=== PATIENT | male | born 1950 | race Caucasian/White ===

== ENCOUNTER 2025-03-01 17:49 | Emergency (ER) | payer MEDICARE, SELFPAY ==
--- OUTSIDE RECORDS SUMMARY | 2005-10-23 08:00 | XMS_ITS | Continuity of Care Document ---
Author Organization [facility] Address [address] [address] [place] [address] Phone Care Team Providers Care Cath Lab Manager Name Role Phone Unavailable Unavailable Unavailable Allergies, Adverse Reactions, Alerts Substance Reaction Status Criticality No Known allergies Medications Medication Instructions Dosage Effective Dates (start - stop) Status Comments glucosamine sulfate 500 mg Cap Take 1 tablet by mouth daily - Active allopurinol 300 mg Tab Take one tablet by mouth daily - Active Prilosec 20 mg Cap Take one capsule by mouth twice per day - Active ranitidine 75 mg Tab Take one tablet by mouth two times per day - Active Aspirin Low Dose 81 mg Tab, Delayed Release Take 1 tablet by mouth daily - Active MULTI-VITAMINS TABLET Take 1 tablet by m outh daily - Active Procedures Procedure Date Ugi Endo; W/bx 1/mx Advance Directives Directive Yes / No Effective Date File Name No Information Encounters Encounter Description Practice Location Reason(s) For Visit Diagnoses Date Provider Providers Copied on Encounter [facility], [address] [address], [place], [place], [id number], [place] tel:[phone] [facility] No Information Family History Family Member Type Diagnosis Age At Onset No Information Payers Payer name Insurance type Covered republican ID Authoriza tion(s) No Information Social History Type Description Quantity Date Captured Comments Sex Male Smoking Status No Information Chief Complaint And Reason For Visit No Information Reason For Referral Reason For Referral No Information History Of Present Illness Encounter Date Complaint History Of Prese nt Illness No Information Functional Status Date Functional Assessmen t No Information Instructions Date Instruction Additional Infor mation No Information Assessments Type Assessment Date No Information Patient Care Teams Name Effective Dates (start - stop) Status Members No Information
--- OUTSIDE RECORDS SUMMARY | 2005-10-23 08:00 | XMS_ITS | Continuity of Care Document ---
Author Organization [facility] Address [address] [address] [place] [address] Phone Care Team Providers Care Small Lot Operator Name Role Phone Unavailable Unavailable Unavailable Allergies, [...] Diagnoses Date Provider Providers Copied on Encounter [facility], [address] [address], [place], [place], [id number], [place] tel:[phone] [facility] No Information Family History Family Member Type Diagnosis Age At Onset No Information Payers Payer name Insurance type Covered alliance party ID Authoriza tion(s) No Information Social History [...]
--- OUTSIDE RECORDS SUMMARY | 2008-01-19 18:00 | XMS_ITS | Continuity of Care Document ---
Author Organization [facility] Address [address] [place] [address] Phone Care Team Providers Care Administrative Supervisor Name Role Phone Rigo DIAZ MD, Klever Unavailable Unavailable Advance Directives Directive Yes / No Effective Date File Name No Information Encounters Encounter Description Practice Location Reason(s) For Visit Diagnoses Date Provider Providers Copied on Encounter [facility], [address], [place], [place], [id number], [place] tel:[phone] No Information 8 Rigo Ernst. [address], [place], [place], [facility], [place]. tel:[phone] Referring Provider: Klever Olmstead, [address] [place], [place], [facility]. tel:[phone] Family History Family Member Type Diagnosis Age At Onset No Information Payers Payer name Insurance type Covered green party ID Authoriza tiyosef(s) Blue Plus BL [id number] Social History Type Description Quantity Date Captured [...]
--- OUTSIDE RECORDS SUMMARY | 2008-01-19 18:00 | XMS_ITS | Continuity of Care Document ---
Author Organization [facility] Address [address] [place] [address] Phone Care Team Providers Care Lower School Spanish Teacher Name Role Phone Rigo DIAZ MD, Klever Unavailable Unavailable Advance Directives Directive Yes / No Effective Date File Name No Information Encounters Encounter Description Practice Location Reason(s) For Visit Diagnoses Date Provider Providers Copied on Encounter [facility], [address], [place], [place], [id number], [place] tel:[phone] No Information 8 Rigo Ernst. [address], [place], [place], [facility], [place]. tel:[phone] Referring Provider: Klever Olmstead, [address] [place], [place], [facility]. tel:[phone] Family History Family Member Type Diagnosis Age At Onset No Information Payers Payer name Insurance type Covered democrat ID Authoriza tiyosef(s) Blue Plus BL [id number] Social History Type Description Quantity Date Captured [...]
--- OUTSIDE RECORDS SUMMARY | 2025-03-01 17:52 | XMS_ITS | Encounter Summary ---
Author Organization [facility] Address [address] [place] [address] Care Team Providers Care Associate Program Manager Name Role Phone Love Sandra APRN, C.N.P., M.S.N. Primary Care Provider Encounter Details Date Type Department Care Team ([facility] st Contact Info) Description 01/17/2025 Orders Only Department of Family Medicine, [facility], in [place] [address] [place] [phone] Love Sandra APRN, C.N.P., M.S.N. [address] [place] [phone] Social History Tobacco Use Types Packs/Day Years Used Date Smoking Tobacco: Former Cigarettes 0.8 19 1 969 - 1987 Smokeless Tobacco: Never Alcohol Use Standard Drinks/Week Comments Not Currently 0 (1 standard drink = 0.6 oz pur e alcohol) Hunger Vital Sign Answer Date Recorded Within the past 12 months, y ou worried that your food would run out before you got the money to buy more. Never true 01/04/20 25 Within the past 12 months, t he food you bought just didn't last and you didn't have money to get more. Never true 01/03/2025 PRAPARE - Transportation Answer Date Re corded In the past 12 months, has l ack of transportation kept you from medical appointments or from getting medications? No 12/19 In the past 12 months, has l ack of transportation kept you from meetings, work, or from getting things needed for daily living? No 01/03/2025 [facility] Utilities Answer Date Recorded In the past 12 months has [facility] electric, gas, oil, or water company threatened to shut off services in your home? No 01/03/2025 Depression Answer Date Recor ded PHQ-9 Total Score (max 27) 2 01/24 Housing Stability Answer Date Recorded What is your living situation today? I have a [facility] place to live 01/03/2025 Sex and Gender Information Value Date Recorded Sex Assigned at Male 01/14/2021 1:53 PM CDT Legal Sex Male 4:35 PM CDT Gender Identity Not on file Sexual Orientation Not on file documented as of this encounter Plan of Treatment Upcoming Encounters Date Type Department Care Team (Late st Contact Info) Description 05/30/2025 9:10 AM BUSINESS LIBRARIAN Appointment Department of Laboratory Medicine in [address] [phone] Love Sandra APRN, C.N.P., M.S.N. [address] [place] [phone] 05/30/2025 9:20 AM BUSINESS LIBRARIAN Appointment Department of Laboratory Medicine in [address] [place] [address] Love Sandra APRN, C.N.P., M.S.N. [address] [place] [phone] 05/31/2025 3:00 PM BUSINESS LIBRARIAN Office Visit Department of Family Medicine, [facility], in [address] [place] [address] Love Sandra APRN, C.N.P., M.S.N. [address] [place] [phone] documented as of this encounter Visit Diagnoses Not on filedocumented in this encounter Additional Health Concerns Assessment Noted Time PHQ-9 Depression Total Score: 2 01/25/20 22 8:34 AM CDT documented as of this encounter Care Teams Associate Program Manager Relationship Specialty Start Date End Date Love Sandra APRN, C.N.P., M.S.N. [address] [place] [phone] PCP - General Family Medicine 07/28/23 documented as of this encounter
--- OUTSIDE RECORDS SUMMARY | 2025-03-01 17:52 | XMS_ITS | Clinical Summary ---
Author Organization [facility] Address [address] [place] [address] Care Team Providers Care Territory Manager General Sales Name Role Phone Love Sandra APRN C.N.P., M.S.N. Primary Care Provider Source Comments Patient records contain information from all sites at [facility]. For routine questions regarding patient records, call [phone] during business hours, M-F 8:00 AM - 5:00 PM Central Time. Record requests for emergency care only can be directed to [phone] at any time.[facility] Allergies Active Allergy Reactions Criticality Noted Date Comments Hydrocodone-Acetaminophen Anxiety,Other (see comments) 07/02/2010 Oxycodone Anxiety,Other (see comments) 07/02/2010 Medications pravastatin (PRAVACHOL) 40 mg tablet TAKE ONE TABLET BY MOUTH AT BEDTIME FOR CHOLESTEROL 0 Active metFORMIN (GLUCOPHAGE) 1,000 mg tablet TAKE ONE TABLET BY MOUTH TWO TIMES A DAY FOR DIABETES 0 Active allopurinoL (ZYLOPRIM) 300 mg tablet TAKE ONE TABLET BY MOUTH EVERY DAY 0 Active timolol (TIMOPTIC) 0.5 % ophthalmic solution INSTILL 1 DROP INTO EACH EYE TWICE DAILY 1 Active CLONAZEPAM ORAL Take by mouth. PRN for anxiety Active ketoconazole (NIZORAL) 2 % shampoo Shampoo daily, leave on for 5-10 minutes, then rinse. 120 mL [address] aspirin [address] tablet TAKE ONE TABLET BY MOUTH EVERY DAY 1 Active hydrocortisone (HYTONE) 2.5 % cream APPLY TO AFFECTED AREA(S) ON FOREHEAD ONCE TO TWICE DAILY WHEN DRY AND ITCHY 1 Active acetaminophen (TYLENOL) 500 mg tablet Take 1 tablet (500 mg total) by mouth every 6 (six) hours. Alternate with tramadol every 3 hours scheduled 120 tablet 1 Active citalopram (CeleXA) 20 mg tablet Take 1 tablet by mouth daily. 2 Active meclizine (ANTIVERT) 25 mg chewable tablet Chew 25 mg 3 (three) times a day as needed for dizziness. Active chlorthalidone (Hygroton) 25 mg tablet Take 25 mg by mouth daily. Active lisinopriL 20 mg tablet Take 1 tablet (20 mg total) by mouth daily. 90 tablet 3 5 08/20/19 26 Active betamethasone dipropionate 0.05 % ointment Apply topically. 5 Active semaglutide (Ozempic) 2 mg/dose (8 mg/3 mL) injection Inject under the skin. 5 Active empagliflozin (Jardiance) 25 mg tablet Take 25 mg by mouth daily. for diabetes 5 Active miconazole 2 % powder Apply to arm pits 2 times daily for 2/3 weeks. Stop nystatin. 71 g 1 5 Active Active Problems Problem Noted Date Diagnosed Date Fatty Liver 11/28/2024 Assessment & Plan (11/28/2024 9:59 AM CDT): - Patient continues to work on weight loss, and is doing well with this. General Health Maintenance Significant weight loss positively impacting health. Regular eye exams with no diabetic eye disease. - Continue regular eye exams twice a year. - Maintain current weight management strategies. Follow-up Good control of diabetes and blood pressure. Suggested follow-up in six months. - Schedule follow-up appointment in six months. Dizziness 08/26/2023 Diabetes Mellitus Type 2 With Diabetic Neuropath y 07/15/2023 Assessment & Plan (11/28/2024 9:59 AM CDT): Type 2 Diabetes Mellitus A1c improved to 7.2, indicating good control. Emphasized taking metformin with food to enhance efficacy and reduce side effects. - Continue metformin 1000 mg twice a day. - Instruct to take metformin with food. Peripheral Neuropathy Numbness and tingling in toes, possibly due to diabetes or past knee surgery. Declined diabetic shoes at this time. - Consider diabetic shoes if foot ulcers develop. Orders: Hemoglobin A1c; Future Albumin, Random, Urine; Future Assessment & Plan (08/19/2024 10:02 AM CDT): -- A1C up to 7.9 due to dietary discretion, no medication changes made. Continue Ozempic 1 mg weekly And metformin. Type 2 diabetes mellitus with hyperglycemia A1c increased from 6.7% to 7.9% due to increased sugar intake. - Advise reducing sugar intake and adopting a healthy diet. -Peripheral neuropathy, DM Decreased sensation in feet likely related to diabetes. - Advise monitoring feet for injuries or changes using a mirror. - F/up in 3 months Orders: Hemoglobin A1c; Future Diabetes Mellitus Type 2 Wit h Diabetic Chronic Kidney Disease 07/09/2023 Assessment & Plan (11/28/2024 9:59 AM CDT): Type 2 Diabetes Mellitus A1c improved to 7.2, indicating good control. Emphasized taking metformin with food to enhance efficacy and reduce side effects. - Continue metformin 1000 mg twice a day. - Instruct to take metformin with food. Peripheral Neuropathy Numbness and tingling in toes, possibly due to diabetes or past knee surgery. Declined diabetic shoes at this time. - Consider diabetic shoes if foot ulcers develop. Orders: Hemoglobin A1c; Future Albumin, Random, Urine; Future Smoking Tobacco Use Personal History 01/01/2021 Dermatitis Seborrheic 12/26/2020 Claustrophobia 09/30/2020 Primary Open-Angle Glaucoma Indeterminate Stage Right 09/21/2020 Gastroesophageal Reflux Disease NOS 09/21/2020 Assessment & Plan (11/28/2024 9:59 AM CDT): - Doing well, no longer on omeprazole Obesity Body Mass Index 30-39.9 Adult 08/27/2020 Assessment & Plan (11/28/2024 9:59 AM CDT): -Body mass index is 33.11 kg/m . He is doing well with continued weight loss Assessment & Plan (08/19/2024 10:02 AM CDT): --Body mass index is 33.4 kg/m . Continue with weight loss efforts and patient is doing wonderful with this Arthroplasty Total Knee Replacement Status Post Left 08/06/2020 Depression Major Recurrent Full Remission 2015 Assessment & Plan (11/28/2024 9:59 AM CDT): - Mood is stable on citalopram, and prn chilo managed by the [facility] Assessment & Plan (08/19/2024 9:31 AM CDT): -- Stable on citalopram. Continue. Gout 09/27/2015 Assessment & Plan (11/28/2024 9:59 AM CDT): - no recent gouty flares, continue allopurinol 300mg daily; Uric Acid (3.8) August 2024 Assessment & Plan (08/19/2024 9:31 AM CDT): -- uric acid levels within normal limits, continue current dosing of allopurinol Hypertensive Chronic Kidney Disease With Stage 1 Through Stage 4 Chronic Kidney Disease, Or Unspecified Chronic Kidney Disease 03/07/2015 Assessment & Plan (11/28/2024 9:59 AM CDT): Hypertension Blood pressure well-controlled. Continue lisinopril and chlorthalidone, no dizziness reported. Assessment & Plan (08/19/2024 10:02 AM CDT): -- BP normotensive, and patient is orthostatic. Recommend optimal fluid hydration. -- Reduce lisinopril from 30-20mg -- Continue chlorthalidone - Monitor BP at home, recommend fluid hydration Apnea Sleep Obstructive 03/13/2010 Assessment & Plan (11/28/2024 9:59 AM CDT): - stable and compliant with CPAP, follows [facility] the [facility] Hyperlipidemia 02/17/2010 Overview (09/21/2020): 5.5% 10 yr risk 2013 69% lifetime risk Assessment & Plan (11/28/2024 9:59 AM CDT): - Lipid panel up to date in August, continue pravastatin Resolved Problems Problem Noted Date Diagnosed Date Resolved Date Diabetes Mellitus Type 2 Wit h Diabetic Neuropathy 02/12/2024 02/12/2024 Body Mass Index 40.0 To 44.9 Adult 01/01/2021 02/20/2021 Dyspnea 01/01/2021 01/14/2023 Care Home Use Of Insulin Active 12/17/2020 02/12/2024 Tear Rotator Cuff Initial Left 11/12/2020 12/26/2020 Overview (11/12/2020): Added automatically from request for surgery [id number] Pain Shoulder Left 09/30/2020 Alzheimer's Disease 09/30/2020 10/24/19 21 Anxiety 09/21/2020 09/21/2020 Anxiety 09/21/2020 02/20/2021 Osteoarthritis 09/21/2020 12/26/2020 Hypertension Essential Primary 09/11/2020 09/21/2020 Diabetes Mellitus Type 2 Without Complication 08/16/19 21 07/15/2023 Arthroplasty Total Hip Repla cement Status Post Left 08/06/2020 12/26/2020 Arthroplasty Total Knee Repl acement Status Post Right 08/06/2020 12/26/2020 Sleep Apnea Unspecified 08/06/202012/19 Emphysema Panlobular 10/17/2015 021 Obesity Body Mass Index 30-39.9 Adult 10/03/2014 11/28/2024 Encounters Date Type Department Care Team Description 03/01/2025 Nurse Triage Department of Family Medicine, [facility], [place] [address] [place] [address] Radha Birmingham R.N. Head Injury 02/28/2025 Clinical Communication Department of Family Medicine, [facility], in [address] [place] [address] Love Sandra APRN, C.NGuevara, M.S.N. Order Request (PT for Vertigo) 01/17/2025 Orders Only Department of Family Medicine, [facility], [place] [address] [place] [address] Love Sandra APRN, C.N.Nuvia., M.S.N. 01/17/2025 Orders Only Department of Family Medicine, [facility], in [address] [place] [address] Love Sandra APRN, C.N.Nuvia., M.S.N. 01/17/2025 Clinical Communication Department of Family [facility], [facility], in [address] [place] [address] Love Sandra APRN, C.N.Nuvia., M.S.N. 01/06/2025 Clinical Communication Department of Family [facility], [facility], in [address] [place] [phone] Love Sandra APRN, C.N.Nuvia., M.S.N. Communication (Medication/Symptom Update) 01/03/2025 2:45 PM CDT Office Visit Department of Family Medicine, [facility], in [address] [place] [address] Love Sandra APRN, C.N.P., M.S.N. Sabrina Rain R.N. Annual Medicare Examination Return (Primary Dx) Discharge Disposition: Home or Self Care 01/03/2025 2:20 PM CDT Office Visit Department of Family Medicine, [facility], [place] [address] [place] [address] Love Sandra APRN, C.N.P., M.S.N. Intertrigo (Primary Dx) Discharge Disposition: Home or Self Care 01/03/2025 Orders Only Department of Family [facility], [facility], [address] [phone] Love Sandra APRN, C.N.P., M.S.N. Tinea Corporis 12/22/2024 11:20 AM CDT Office Visit Department of Family Medicine, [facility], [place] [address] [place] [address] Elier Sepulveda M.D. Tinea Corporis (Primary Dx) Discharge Disposition: Home or Self Care 12/22/2024 Orders Only [facility] Love Sandra APRN, C.N.P., M.S.N. from Last 3 Months Immunizations Immunization Administration Dates Next Due HZV (ZOSTAVAX) 09/27/2015,11/13/2014 HepB Adult 08/26/2023(Deferred: Patient Ref used) Influenza TIV (IM) 02/06/2016, 6,01/29/2012,2010,01/04/2009 Influenza, Seasonal, Injectable 01/04/2009 Influenza, Unspecified 03/30/2020,2013,04/20/2012,2009 PCV13 09/27/2015 PPSV23 09/24/2016,04/03/2009 Pneumococcal, Unspecified 07/29/2023(Deferred: P atient decision) RZV (SHINGRIX) 06/13/2021, 1,12/26/2020(Deferr ed: Parental decision) SARS-COV-2 (COVID-19) - MODERNA(Discontinued) 07/01/2020,06/03/2020 Tdap 06/13/2021, 1,07/02/2010,2008 Zoster, Unspecified 12/26/2020(Deferred: Other),08/15/2020(Deferred: Other) influenza trivalent high dos e (HD)(PF) 02/06/2017,02/06/2016 influenza trivalent vaccine (6 months and older)(PF) 01/06/2019,02/17/2018,04/12/2015 influenza vaccine quad (FLUZONE/FLUARIX) (6 months and older)(PF) 08/26/2023(Deferred: Patient Refused),03/30/2020,02/01/2014,02/17/20 13 Family History Medical History Relation Name Comments Heart disease Brother No Known Problems Daughter 1 No Known Problems Daughter 2 Old age Father Cancer Mother Heart disease Sister 1 Hernia Sister 2 No Known Problems Son Relation Name Status Comments Brother Alive Daughter 1 Alive Daughter 2 Alive Father Mother Sister 1 Alive Sister 2 Alive Son Alive Social History Tobacco Use Types Packs/Day Years Used Date Smoking Tobacco: Former Cigarettes 0.8 19 1 969 - 1987 Smokeless Tobacco: Never Tobacco Cessation:Counseling Given: Yes Alcohol Use Standard Drinks/Week Comments Not Currently [...] things needed for daily living? No 01/03/2025 [facility] Utilities Answer Date Recorded In the past 12 months has e [employer], gas, oil, or water [employer] threatened to shut off services in your home? No 01/03/2025 Depression Answer Date Recor ded PHQ-9 Total Score (max 27) 2 01/24 Housing Stability Answer Date Recorded What is your living situation today? I have a [facility] place to live 01/03/2025 Sex and Gender Information Value Date Recorded Sex Assigned at Male 01/14/2021 1:53 PM CDT Legal Sex Male 4:35 PM CDT Gender Identity Not on file Sexual Orientation Not on file Last Filed Vital Signs Vital Sign Reading Time Taken Comments Blood Pressure 137/77 01/03/2025 1:56 PM CDT Pulse 63 01/03/2025 1:56 PM CDT Temperature 36.6 C (97.8 F) 01/03/2025 1:56 PM CDT Respiratory Rate 18 12/22/2024 10:59 AM CDT Oxygen Saturation 95% 08/19/2024 7:56 AM CDT Inhaled Oxygen Concentration - - Weight 114 kg (250 lb 10.6 oz) 01/03/2025 1:56 P M CDT Height 185.4 cm (6' 0.99) 01/03/2025 1:56 PM CD T Body Mass Index 33.08 01/03/2025 1:56 PM CDT Plan of Treatment Upcoming Encounters Date Type Department Care Team (Late st Contact Info) Description 05/30/2025 9:10 AM BODY SHOP WORKER Appointment Department of Laboratory Medicine in [address] [place] [address] Love Sandra APRN, C.N.P., M.S.N. [address] [place] [address], [place] [phone] 05/30/2025 9:20 AM BODY SHOP WORKER Appointment Department of Laboratory Medicine in [address] [place] [address] Love Sandra APRN, C.N.P., M.S.N. [address] [place] [address], [place] [phone] 05/31/2025 3:00 PM BODY SHOP WORKER Office Visit Department of Family Medicine, [facility], in [address] [place] [phone] Love Sandra APRN, C.N.P., M.S.N. [address] [place] [phone] Health Maintenance Due Date Last Done Comments CT Colonography 1950 FIT 1950 Hepatitis C Screening 1950 RSV vaccine - (32-36 weeks) or 50+ years (1 - Risk 50-74 years 1-dose series) 2000 Hepatitis B Vaccines (1 of 3 - Risk 3-dose series) 2010 Urine Albumin 07/13/2024 07/14/2023, 07/01/2021 COVID-19 Vaccine ( season) 2024 02/20/2021, 07/01/2020, 06/03/2020 Influenza Vaccine (#1) 2024 , 03/30/2020, 01/06/2019, Additional history exists Hemoglobin A1C 05/28/2025 11/25/2024, 05/0 04/2024, 02/01/2024, Additional history exists Creatinine Level (Kidney Function Test) 08/18/2025 08/18/2024, 07/14/2023, 09/30/2021, Additional history exists Potassium Level 08/18/2025 08/18/2024, 06/19, 09/30/2021, Additional history exists Sodium Level 08/18/2025 08/18/2024, 2 09/2023, 09/30/2021, Additional history exists Diabetic Office Visit with Foot Exam 08/19/2025 08/19/2024, 07/15/2023, 01/24/2022, Additional history exists Visit: Chronic Disease, age 18+ 11/28/2025 11/28/2024, 11/28/2024 Office Visit for Blood Pressure Check / Re-check 01/03/2026 01/03/2025 Visit: Medicare Annual Wellness 01/04/2026 01/03/2025 Diabetic Eye Exam 01/09/2026 01/09/2025 (Pe rformed elsewhere), 11/28/2024 (Performed elsewhere), 01/04/2024 (Performed elsewhere), Additional history exists Cologuard 09/06/2026 09/07/2023 Lipid (Cholesterol) Screening 08/18/2029 08/18/2024, 07/14/2023, 03/27/2021 Colonoscopy 06/18/2030 06/18/2020 (Perf ormed elsewhere) Colorectal Cancer Screening 06/18/2030 DTaP,Tdap,and Td Vaccines (5 - Td or Tdap) 06/13/2031 06/13/2021, 07/28/2020, 07/02/2010, Additional history exists Pneumococcal vaccine (50+ years) Completed 09/24/2016, 09/27/2015, 04/03/2009 Abdominal Aortic Aneurysm (AAA) Screen Completed 01/15/2021 Zoster Vaccines Completed 06/13/2021, 11/2020, 09/27/2015, Additional history exists Fall Risk Screen (Annual) Completed 08/19/2024 IPV Vaccines Aged Out No longer eligi ble based on patient's age to complete this topic Medical Devices Implanted Type Area Automotive Project Engineer Device Identifier Shelf Expiration Date Model / Serial / Lot Baseplate Rev Std 25mm - [id number] - [id number] Implanted:Qty: 1 on 11/22/2020 by Osvaldo Carrizales M.D. at [facility] Hardware e.g. pins/screws /rods [facility] [id number] 06/07/2025 [id number] / [id number] / Hip Implant-04/20/19 10 Implanted:04/2009 (Quantity not on file) Hip Implant Left: Hip Knee Implant-04/20/19 08 Implanted:04/2007 (Quantity not on file) Knee Implant Bilater al: Knee Standard 39mm Glenosphere Implanted:Qty: 1 on 11/22/2020 by Osvaldo Carrizales M.D. at [facility] Shoulder Implant [facility] [id number] 05/30/2025 [id number] / [id number] / Low Reversed Tray Implanted:Qty: 1 on 11/22/2020 by Osvaldo Carrizales M.D. at [facility] Shoulder Implant [facility] [id number] 10/03/2025 [id number] / [id number] / Size 5b Standard Stem Implanted:Qty: 1 on 11/22/2020 by Osvaldo Carrizales M.D. at [facility] Shoulder Implant [facility] [id number] 06/05/2025 [id number] / [id number] / 39 +9 Reversed Insert Implanted:Qty: 1 on 11/22/2020 by Osvaldo Carrizales M.D. at [facility] Shoulder Implant [facility] [id number] 01/19/2025 [id number] / [id number] / Central Screw Implanted:Qty: 1 on 11/22/2020 by Osvaldo Carrizales M.D. at [facility] Shoulder Implant [facility] [id number] / / NA Peripheral Screw Implanted:Qty: 2 on 11/22/2020 by Osvaldo Carrizales M.D. at [facility] Shoulder Implant [facility] [id number] / / NA Procedures Procedure Name Priority Date/Time Associated Diagnosis Comments HEMOGLOBIN A1C, B Routine 11/25/2024 9:1 9 AM CDT Diabetes Mellitus Type 2 With Diabetic Neuropathy (HCC) LIPID PANEL, S Routine 08/18/2024 8:02 AM CDT Hyperlipidemia BASIC METABOLIC PANEL, S/P Routine 08/18/2024 8:02 AM CDT Hypertensive Chronic Kidney Disease With Stage 1 Through Stage 4 Chronic Kidney Disease, Or Unspecified Chronic Kidney Disease COLOGUARD Routine 09/07/2023 10:00 AM CDT Screening Cancer Colon ALBUMIN, RANDOM, U Routine 07/14/2023 8:58 AM CDT Diabetes Mellitus Type 2 Without Complication (HCC) US AORTA AAA SCREENING RAD - Routine (most inpatients and all outpatients) 01/15/2021 8:14 AM CDT Screening Abdominal Aortic Aneurysm from Last 3 Months or Most Recently Relevant to Health Maintenance Results * (ABNORMAL) Hemoglobin A1c (11/25/2024 9:19 AM CDT) Hemoglobin A1c, B 7.2(H) 4.2 - 5.6 % 11/25/2024 10:13 AM CDT [facility] Comment: Hemoglobin A1c values greater than or equal to 6.5 percent are diagnostic for diabetes mellitus. Diagnosis should be confirmed by repeat testing. In diabetic patients, HbA1c goals should be discussed with healthcare provider. Blood (Blood, Venous) 11/25/2024 9:19 AM CDT 11/25/2024 9:19 AM CDT Love Sandra APRN C.N.P., M.S.N. LAB BLOO D ADD-ON Final Result [facility] [address] [place] [id number], [facility] in [address] [address] * (ABNORMAL) Lipid Panel (08/18/2024 8:02 AM CDT) Triglycerides 160(H) mg/dL 08/18/2024 9:34 AM CDT [facility] Comment: ----REFERENCE VALUE---- Normal: <150 mg/dL Borderline High: 150-199 mg/dL High: 200-499 mg/dL Very High: > or =500 mg/dL Cholesterol, Total 105 mg/dL 2024 9:34 AM CDT [facility] Comment: ----REFERENCE VALUE---- Desirable: < 200 mg/dL Borderline High: 200 - 239 mg/dL High: > or = 240 mg/dL Cholesterol, LDL, Calculated 38 mg/dL 08/18/2024 9:34 AM T [facility] Comment: ----REFERENCE VALUE---- Desirable: <100 mg/dL Above Desirable: 100-129 mg/dL Borderline High: 130-159 mg/dL High: 160-189 mg/dL Very High: >=190 mg/dL ----ADDITIONAL INFORMATION---- LDL cholesterol calculated using the Ramirez/NIH equation. Cholesterol, HDL 40 >=40 mg/dL 08/19/19 9:34 AM CDT [facility] Cholesterol, Non-HDL, Calculated 65 mg/dL 08/18/2024 9:34 AM CDT [facility] Comment: ----REFERENCE VALUE---- Desirable: <130 mg/dL Above Desirable: 130-159 mg/dL Borderline High: 160-189 mg/dL High: 190-219 mg/dL Very High: > or =220 mg/dL Fasting (8 HR or more) Yes 08/18/2024 8:02 AM CDT [facility] Blood (Blood, Venous) 08/18/2024 8:02 AM CDT 08/18/2024 8:02 AM CDT us Love Sandra APRN, C.N.P., M.S.N. LAB BLOO D ADD-ON Final Result [facility] [address] [place] [address], [facility] [place] [address] * (ABNORMAL) Basic Metabolic Panel (08/18/2024 8:02 AM CDT) Potassium, P 4.7 3.6 - 5.2 mmol/L 08/18/2024 9:34 AM CDT [facility] Sodium, P 142 135 - 145 mmol/L 08/18/2024 9:34 AM CDT [facility] Chloride, P 103 98 - 107 mmol/L 08/18/2024 9:34 AM CDT [facility] Bicarbonate, P 28 22 - 29 mmol/L 08/18/2024 9:34 AM CDT [facility] Anion Gap, P 11 7 - 15 08/18/2024 9:34 AM CDT [facility] BUN (Blood Urea Nitrogen), P 19 8 - 24 mg/dL 08/18/2024 9:34 AM CDT [facility] Creatinine 0.95 0.74 - 1.35 mg/dL 08/18/2024 9:34 AM CDT [facility] Estimated GFR (eGFR) 84 >=60 mL/min/BSA 08/18/2024 9:34 AM CDT [facility] Comment: Estimated GFR calculated using the 2020 CKD_EPI creatinine equation. Calcium, Total, P 9.6 8.8 - 10.2 mg/dL 08/18/2024 9:34 AM CDT [facility] Glucose, P 218(H) 70 - 140 mg/dL 08/18/2024 9:34 AM CDT [facility] Blood (Blood, Venous) 08/18/2024 8:02 AM CDT 08/18/2024 8:02 AM CDT Love Sandra APRN, C.N.P., M.S.N. LAB BLOO D ADD-ON Final Result [facility] [address] [place] [id number], [facility] in [place] [address] * Cologuard - Sent Out Lab (09/07/2023 10:00 AM CDT) Result Negative Negative 09/21/2023 7:53 PM CDT [facility] Comment: NEGATIVE TEST RESULT. A negative Cologuard result indicates a low likelihood that a colorectal cancer (CRC) or advanced adenoma (adenomatous polyps with more advanced pre-malignant features) is present. The chance that a person with a negative Cologuard test has a colorectal cancer is less than 1 in 1500 (negative predictive value >99.9%) or has an advanced adenoma is less than 5.3% (negative predictive value 94.7%). These data are based on a prospective cross-sectional study of 10,000 individuals at average risk for colorectal cancer who were screened with both Cologuard and colonoscopy. (Eulalio Eubanks et al, N Engl J Med 2014;370(14):4716-3199) The normal value (reference range) for this assay is negative. COLOGUARD RE-SCREENING RECOMMENDATION: Periodic colorectal cancer screening is an important part of preventive healthcare for asymptomatic individuals at average risk for colorectal cancer. Following a negative Cologuard result, the [place] [employer] Society and U.S. Multi-Society Task Force screening guidelines recommend a Cologuard re-screening interval of 3 years. References: [place] [employer] Guideline for Colorectal Cancer Screening: https://www.cancer.org/cancer/tpsce-wlmqxe-fbxhja/detection- diagnosis-staging/acs-recommendations.html.; Jason DK, Sylvia FRANCIS, Michelle SIMON, Colorectal Cancer Screening: Recommendations for Physicians and Patients from the U.S. Multi-Society Task Force on Colorectal Cancer Screening , Am J Gastroenterology 2017; 112:9420-5522. TEST DESCRIPTION: Composite algorithmic analysis of stool DNA-biomarkers with hemoglobin immunoassay. Quantitative values of individual biomarkers are not reportable and are not associated with individual biomarker result reference ranges. Cologuard is intended for colorectal cancer screening of adults of either sex, 45 years or older, who are at average-risk for colorectal cancer (CRC). Cologuard has been approved for use by the U.S. FDA. The performance of Cologuard was established in a cross sectional study of average-risk adults aged 50-84. Cologuard performance in patients ages 45 to 49 years was estimated by sub-group analysis of near-age groups. Colonoscopies performed for a positive result may find as the most clinically significant lesion: colorectal cancer [4.0%], advanced adenoma (including sessile serrated polyps greater than or equal to 1cm diameter) [20%] or non- advanced adenoma [31%]; or no colorectal neoplasia [45%]. These estimates are derived from a prospective cross-sectional screening study of 10,000 individuals at average risk for colorectal cancer who were screened with both Cologuard and colonoscopy. (Eulalio Hleton. et al, N Engl J Med 2014;370(14):0122-5458.) Cologuard may produce a false negative or false positive result (no colorectal cancer or precancerous polyp present at colonoscopy follow up). A negative Cologuard test result does not guarantee the absence of CRC or advanced adenoma (pre-cancer). The current Cologuard screening interval is every 3 years. ([place] [employer] and U.S. Multi-Society Task Force). Cologuard performance data in a 10,000 patient pivotal study using colonoscopy as the reference method can be accessed at the following location: [email or web address]. Additional description of the Cologuard test process, warnings and precautions can be found at [email or web address]. Stool (Stool) 09/07/2023 10: 00 AM CDT 09/09/2023 11:10 AM CDT Albina Zee APRN., M.S.N. LAB BODY FLUIDS AND STOOLS ORDERABLES Final Result Performing Organization Address City/[facility]/ZIP Co de Phone Number [employer] [address] [place] [address] [employer] [address] [facility], [address] [place] [address] * Albumin, Random, Urine (07/14/2023 8:58 AM CDT) Albumin, Random, U 7.0 mg/L 2023 3:02 PM CDT MKTO Comment: ----ADDITIONAL INFORMATION---- This test has been modified from the wagon washer's instructions. Its performance characteristics were determined by [facility] in a manner consistent with CLIA requirements. This test has not been cleared or approved by the U.S. Food and Drug Administration. Creatinine 112 mg/dL 07/14/2023 3:02 PM CDT TO Albumin/Creatinine Ratio 6 <17 mg/g 07/14/2023 3:02 PM CDT MKTO Urine (Urine, Midstream) 07/14/2023 8:58 AM CDT 07/14/2023 2:18 PM CDT us Love Sandra APRN, C.N.P., M.S.N. LAB URIN E ORDERABLES Final Result Performing Organization Address City/[facility]/ZIP Co de Phone Number [facility] [address] [place] [address], [facility] [place] [address] * US Aorta AAA Screening (01/15/2021 8:14 AM CDT) Anatomical Region Laterality Modality Abdomen, Pelvis, Ultrasound RST LOS, Ultrasound ARZ LOS, Ultrasound FLA LOS N/A Ultrasound 01/15/2021 8:15 AM CDT Impressions 01/15/2021 8:16 AM CDT The abdominal aorta and common iliac arteries are normal in size and negative for aneurysm. Narrative 01/15/2021 8:16 AM CDT EXAM: US AORTA AAA SCREENING Exam performed with color and spectral Doppler analysis. COMPARISON: None FINDINGS: Aorta: AP - 1.8 cm Aorta: Trans - 1.8 cm Right JENNIFER: AP - 1.3 cm Right JENNIFER Trans - 1.2 cm Left JENNIFER: AP - 1.4 cm Left JENNIFER Trans - 1.3 cm Procedure Note Jimenez Deluna M.D. - 01/15/2021 EXAM: US AORTA AAA SCREENING Exam performed with color and spectral Doppler analysis. COMPARISON: None FINDINGS: Aorta: AP - 1.8 cm Aorta: Trans - 1.8 cm Right JENNIFER: AP - 1.3 cm Right JENNIFER Trans - 1.2 cm Left JENNIFER: AP - 1.4 cm Left JENNIFER Trans - 1.3 cm IMPRESSION: The abdominal aorta and common iliac arteries are normal in size and negative for aneurysm. Love Sandra APRN C.N.P., M.S.N. [facility] P ROCEDURES Final Result from Last 3 Months or Most Recently Relevant to Health Maintenance Insurance [facility] Advance Directives For more information, please contact: [phone] * Full Code (Latest Code Status on File) Date Activated Date Inactivated Comments 11/22/2020 11:50 AM 11/24/2020 2:04 AM Question Answer Comments Full Code: Discussed Care Teams Territory Manager General Sales Relationship Specialty Start Date End Date Love Sandra APRN, C.N.P., M.S.N. [address] [place] [phone] PCP - General Family Medicine 07/28/23
--- OUTSIDE RECORDS SUMMARY | 2025-03-01 17:52 | XMS_ITS | Encounter Summary ---
Author Organization [facility] Address [address] [place] [address] Care Team Providers Care Nurses Medical Assistants Phlebotomists Name Role Phone Love Sandra APRN, C.N.P., M.S.N. Primary Care Provider Encounter Details Date Type Department Care Team ([facility] st Contact Info) Description 01/17/2025 Clinical Communication Department of Family Medicine, [facility], in [place] [address] [place] [phone] Love Sandra APRN, C.N.P., M.S.N. [address] [place] [phone] Social History Tobacco Use Types Packs/Day Years [...] things needed for daily living? No 01/03/2025 [facility] Utilities Answer Date Recorded In the past 12 months has e electric, gas, oil, or water company threatened to shut off services in your home? No 01/03/2025 Depression Answer Date Recor ded PHQ-9 Total Score (max 27) 2 01/24 Housing Stability Answer Date Recorded What is your living situation today? I have a [facility] place to live 01/03/2025 Sex and Gender Information Value Date Recorded Sex Assigned at Male 01/14/2021 1:53 PM CDT Legal Sex Male 4:35 PM CDT Gender Identity Not on file Sexual Orientation Not on file documented as of this encounter Miscellaneous Notes * Telephone Encounter - Traci Martinez R.N. - 01/18/2025 12:03 PM CDT Pt informed to stop nystatin powder and hold of on clobetasol he will picker and packer and start using the miconazole powder. * Telephone Encounter - Love Sandra APRN C.N.PRod, M.S.N. - 01/17/2025 2:16 PM CDT Actually, instead of the nystatin, let's have him try stronger clotrimazole powder, and hold on trying the clobetasol for now, as it looks like he tried this initially and it made it worse. Love Sandra APRN, C.N.PRod, M.S.N. * Telephone Encounter - Love Sandra APRN, C.N.PRod, M.S.N. - 01/17/2025 12:08 PM CDT Start clobetasol cream BID for 7 days Continue nystatin powder as well Please send pictures over the portal * Telephone Encounter - Sabrina Ellsworth L.P.N. - 01/17/2025 11:56 AM CDT Pt states the powder is no longer working for his rash and his rash is getting worse. Please see notes from 01/03/2025: Bilateral axillary intertrigo Subacute intertrigo in bilateral axillae, unresponsive to Lotrisone, and prior treatment of clobetasol. Likely due to warm, moist conditions, possibly exacerbated by Lume. - Discontinue Lume. - Prescribe nystatin antifungal powder for axillae application three times daily for two weeks. - Advise Lotrisone cream application once daily if pruritus occurs, followed by powder. - Instruct to avoid vigorous rubbing and soap on affected area. - Advise to pat dry post-showering. - Request progress report call to clinic on Thursday Would you like for pt to be seen or prescribe a different medication? Please advise Thank you * Telephone Encounter - Yaritza Ashton - 01/17/2025 10:04 AM CDT What is the patient's question? Patient was given this , his rash got better but seams to be going backwards. - Medication name/dose: nystatin powder 100,000 mg What pharmacy are you using today? [facility] Additional comments (if any):do you want to see him again? Or try something else? Phone number:[phone] Special calling instructions: Ok to leave detailed message on voicemail? no Is there a bad time to return this call? Portal: N/A High Priority Message: Yes, patient is almost out of this medication and wondering what to do next Routing: [facility] nurse pools Primary Care- if new symptoms or having side effects, please transfer call to off-site triage ([phone]) Specialty Departments- If urgent (red flag words) Use secure chat to see if nursing is available totake call, if not, transfer to off site triage ([phone]) and send a urgent inbasket to Department nursing pool. documented in this encounter Plan of Treatment Upcoming Encounters Date Type Department Care Team (Late st Contact Info) Description 05/30/2025 9:10 AM PASSPORT APPLICATION EXAMINER Appointment Department of Laboratory Medicine in [address] [place] [phone] Love Sandra APRN, C.N.P., M.S.N. [address] [place] [phone] 05/30/2025 9:20 AM PASSPORT APPLICATION EXAMINER Appointment Department of Laboratory Medicine in [address] [place] [phone] Love Sandra APRN, C.N.P., M.S.N. [address] [place] [phone] 05/31/2025 3:00 PM PASSPORT APPLICATION EXAMINER Office Visit Department of Family Medicine, [facility], in [address] [place] [phone] Love Sandra APRN, C.N.P., M.S.N. [address] [place] [address], [place] [phone] documented as of this encounter Visit Diagnoses Not on filedocumented in this encounter Additional Health Concerns Assessment Noted Time PHQ-9 Depression Total Score: 2 01/25/20 22 8:34 AM CDT documented as of this encounter Care Teams Nurses Medical Assistants Phlebotomists Relationship Specialty Start Date End Date Love Sandra APRN, C.N.P., M.S.N. [address] [place] [address], [place] [phone] PCP - General Family Medicine 07/28/23 documented as of this encounter
--- OUTSIDE RECORDS SUMMARY | 2025-03-01 17:52 | XMS_ITS | Encounter Summary ---
Author Organization [facility] Address [address] [place] [address] Care Team Providers Care Graphic Production Artist Name Role Phone Love Sandra APRN, C.N.PRod, M.S.N. Primary Care Provider Reason for Referral * Physical Therapy (Routine) - Authorized Specialty Diagnoses / Procedures Referred By Contmaggie t Referred To Contact Diagnoses Dizziness Procedures PT Evaluate and treat Love Sandra APRN, C.N.P., M.S.N. [address] [place] [phone] Phone: tel: fax: [facility] Referral ID Status Reason Start Date Expiration Date V isits Requested Visits Authorized [id number] Authorized 03/01/2025 06/01/2026 1 1 RRAL CLERK Reason for Visit * Reason Onset Date Comments Order Request 02/28/2025 PT for Vertigo Encounter Details Date Type Department Care Team (Latest Contact Info) Description 02/28/2025 Clinical Communication Department of Family Medicine, [facility], in [place], [place] [address] [place] [phone] Love Sandra APRN, C.N.Nuvia., M.S.N. [address] [place] [phone] Order Request (PT for Vertigo) Social History Tobacco Use Types Packs/Day Years [...] needed for daily living? No 01/03/2025 [facility] Utilities Answer Date Recorded In the past 12 months has e electric, gas, oil, or water company threatened to shut off services in your home? No 01/03/2025 Depression Answer Date Recor ded PHQ-9 Total Score (max 27) 2 01/24 Housing Stability Answer Date Recorded What is your living situation today? I have a [facility] place to live 01/03/2025 Sex and Gender Information Value Date Recorded Sex Assigned at Male 01/14/2021 1:53 PM CDT Legal Sex Male 4:35 PM CDT Gender Identity Not on file Sexual Orientation Not on file documented as of this encounter Miscellaneous Notes * Telephone Encounter - Love Sandra APRN, C.N.P., M.S.N. - 03/01/2025 2:13 PM CST Order placed RRAL CLERK * Telephone Encounter - Sabrina Ellsworth L.P.N. - 03/01/2025 1:25 PM REFERRAL CLERK R: Please review pended order requested and route to scheduling pool when signed. S/B: Patient calls to request an order for PT Pertinent Medical History includes: Dizziness A: Pt is requesting an order for PT to help manage his dizziness. Thank you, Uyen Ellsworth L.P.N. RRAL CLERK documented in this encounter Plan of Treatment Upcoming Encounters Date Type Department Care Team (Late st Contact Info) Description 05/30/2025 9:10 AM REFERRAL CLERK Appointment Department of Laboratory Medicine in [address] [place] [phone] Love Sandra APRN, Cisco.N.P., M.S.N. [address] [place] [phone] 05/30/2025 9:20 AM REFERRAL CLERK Appointment Department of Laboratory Medicine in [address] [place] [phone] Love Sandra APRN, C.N.P., M.S.N. [address] [place] [phone] 05/31/2025 3:00 PM REFERRAL CLERK Office Visit Department of Family Medicine, [facility], in [address] [place] [phone] Love Sandra APRN, C.N.P., M.S.N. [address] [place] [phone] documented as of this encounter Visit Diagnoses Diagnosis Dizziness- Primary documented in this encounter Additional Health Concerns Assessment Noted Time PHQ-9 Depression Total Score: 2 01/25/20 22 8:34 AM CDT documented as of this encounter Care Teams Graphic Production Artist Relationship Specialty Start Date End Date Love Sandra APRN, C.N.P., M.S.N. [address] [place] [address] [place] [phone] PCP - General Family Medicine 07/28/23 documented as of this encounter
--- OUTSIDE RECORDS SUMMARY | 2025-03-01 17:52 | XMS_ITS | Encounter Summary ---
Author Organization [facility] Address [address] [place] [address] Care Team Providers Care Pressure Tester Operator Name Role Phone Love Sandra APRN, C.N.P., M.S.N. Primary Care Provider Reason for Visit * Reason Onset Date Comments Communication 01/06/2025 Medication/Sympt om Update Encounter Details Date Type Department Care Team (Latest Contact Info) Description 01/06/2025 Clinical Communication Department of Family Medicine, [facility], in [place] [address] [place] [phone] Love Sandra APRN, C.N.P., M.S.N. [address] [place] [phone] Communication (Medication/Symptom Update) Social History Tobacco Use Types Packs/Day Years [...] things needed for daily living? No 01/03/2025 [facility] Utilities Answer Date Recorded In the past 12 months has th e electric, gas, oil, or water company threatened to shut off services in your home? No 01/03/2025 Depression Answer Date Recor ded PHQ-9 Total Score (max 27) 2 01/24 Housing Stability Answer Date Recorded What is your living situation today? I have a [facility] place to live 01/03/2025 Sex and Gender Information Value Date Recorded Sex Assigned at Male 01/14/2021 1:53 PM CDT Legal Sex Male 4:35 PM CDT Gender Identity Not on file Sexual Orientation Not on file documented as of this encounter Miscellaneous Notes * Telephone Encounter - Love Sandra APRN C.N.P., M.S.N. - 01/06/2025 11:36 AM CDT Excellent thank you documented in this encounter Plan of Treatment Upcoming Encounters Date Type Department Care Team (Late st Contact Info) Description 05/30/2025 9:10 AM ASSISTANT DEAN OF STUDENTS Appointment Department of Laboratory Medicine in [address] [phone] Love Sandra APRN, C.N.P., M.S.N. [address] [place] [phone] 05/30/2025 9:20 AM ASSISTANT DEAN OF STUDENTS Appointment Department of Laboratory Medicine in [address] [phone] Love Sandra APRN, C.N.P., M.S.N. [address] [place] [phone] 05/31/2025 3:00 PM ASSISTANT DEAN OF STUDENTS Office Visit Department of Family Medicine, [facility], in [address] [place] [phone] Love Sandra APRN C.N.P., M.S.N. [address] [place] [address], [place] [phone] documented as of this encounter Visit Diagnoses Not on filedocumented in this encounter Additional Health Concerns Assessment Noted Time PHQ-9 Depression Total Score: 2 01/25/20 22 8:34 AM CDT documented as of this encounter Care Teams Pressure Tester Operator Relationship Specialty Start Date End Date Love Sandra APRN, C.N.P., M.S.N. [address] [place] [address], [place] [phone] PCP - General Family Medicine 07/28/23 documented as of this encounter
--- OUTSIDE RECORDS SUMMARY | 2025-03-01 17:52 | XMS_ITS | Encounter Summary ---
Author Organization [facility] Address [address] [place] [address] Care Team Providers Care Log Handling Equipment Operator Name Role Phone Love Sandra APRN, C.N.P., M.S.N. Primary Care Provider Encounter Details Date Type Department Care Team ([facility] st Contact Info) Description 01/17/2025 Orders Only Department of Family Medicine, [facility], in [place] [address] [place] [phone] Love Sandra APRN, C.N.P., M.S.N. [address] [place] [phone] Social History Tobacco Use Types Packs/Day Years [...] things needed for daily living? No 01/03/2025 [facility] Utilities Answer Date Recorded In the past 12 months has [facility] electric, gas, oil, or water company threatened to shut off services in your home? No 01/03/2025 Depression Answer Date Recor ded PHQ-9 Total Score (max 27) 2 01/24 Housing Stability Answer Date Recorded What is your living situation today? I have a [facility] place to live 01/03/2025 Sex and Gender Information Value Date Recorded Sex Assigned at Male 01/14/2021 1:53 PM CDT Legal Sex Male 4:35 PM CDT Gender Identity Not on file Sexual Orientation Not on file documented as of this encounter Plan of Treatment Upcoming Encounters Date Type Department Care Team (Late st Contact Info) Description 05/30/2025 9:10 AM IRON LAUNDER OPERATOR Appointment Department of Laboratory Medicine in [address] [phone] Love Sandra APRN, C.N.P., M.S.N. [address] [place] [phone] 05/30/2025 9:20 AM IRON LAUNDER OPERATOR Appointment Department of Laboratory Medicine in [address] [place] [phone] Love Sandra APRN, C.N.P., M.S.N. [address] [place] [phone] 05/31/2025 3:00 PM IRON LAUNDER OPERATOR Office Visit Department of Family Medicine, [facility], in [address] [place] [phone] Love Sandra APRN, C.N.P., M.S.N. [address] [place] [phone] documented as of this encounter Visit Diagnoses Not on filedocumented in this encounter Additional Health Concerns Assessment Noted Time PHQ-9 Depression Total Score: 2 01/25/20 22 8:34 AM CDT documented as of this encounter Care Teams Log Handling Equipment Operator Relationship Specialty Start Date End Date Love Sandra APRN, C.N.P., M.S.N. [address] [place] [phone] PCP - General Family Medicine 07/28/23 documented as of this encounter
--- OUTSIDE RECORDS SUMMARY | 2025-03-01 17:52 | XMS_ITS | Encounter Summary ---
Author Organization [facility] Address [address] [place] [address] Care Team Providers Care Gas Meter Installer Name Role Phone Love Sandra APRN C.N.Britta, M.S.N. Primary Care Provider Reason for Visit * Reason Onset Date Comments Head Injury 03/01/2025 Encounter Details Date Type Department Care Team ([facility] st Contact Info) Description 03/01/2025 Nurse Triage Department of Family Medicine, [facility], in [place], [place] [address] [place] [phone] Radha Birmingham, R.N. Head Injury Social History Tobacco Use Types Packs/Day Years [...] things needed for daily living? No 01/03/2025 [facility] Utilities Answer Date Recorded In the past 12 months has th e electric, gas, oil, or water company threatened to shut off services in your home? No 01/03/2025 Depression Answer Date Recor ded PHQ-9 Total Score (max 27) 2 01/24 Housing Stability Answer Date Recorded What is your living situation today? I have a [facility] place to live 01/03/2025 Sex and Gender Information Value Date Recorded Sex Assigned at Male 01/14/2021 1:53 PM CDT Legal Sex Male 4:35 PM CDT Gender Identity Not on file Sexual Orientation Not on file documented as of this encounter Miscellaneous Notes * Telephone Encounter - Radha Birmingham RShabana - 03/01/2025 10:45 AM IRB COMPLIANCE COORDINATOR Chief Complaint / Reason for Call Patient is a 74 y.o. male calling regarding Head Injury. Assessment Concern: Patient fell backwards off trailer three days ago. Hit back of head and was knocked unconscious. Unsure how long but woke up with confusion and unsure where he was for about 1 hr. Patient been experiencing vertigo, feeling really dizzy when standing up or moving side to side in bed. Patient also notes a constant moderate headache. Patient is alert but notes brain fog. No vomiting. No vision changes. Present for: 3 days Home cares tried: Ibuprofen Calling to request: advice The recommended disposition is Go to ED Now. Tele EM: Dr. Madsen: Agrees with recommendation of having patient come to Emergency Room [place] patient advised to present to their nearest emergency department for further recommendation oftheir concerns. Reason for Disposition [1] ACUTE NEURO SYMPTOM AND [2] now fine (Definition: Difficult to awaken OR confused thinking and talking OR slurred speech OR weakness of arms or legs OR unsteady walking.) Protocols used: Head Idrbdx-Txtkk-LP Care Advice Patient/Caregiver understands and will follow care advice?: Yes, able to teach back Head Nnfohf-Olmjt-JU Nurse Radha Hinson Mar 01, 2025 10:53 AM Care Advice GO TO ED NOW: * You need to be seen in the Emergency Department. * [facility]. * Leave now. Drive carefully. ANOTHER ADULT SHOULD DRIVE: * It is better and safer if another adult drives instead of you. USE A COLD PACK FOR PAIN, SWELLING, OR BRUISING: * Put a cold pack or an ice bag (wrapped in a moist towel) on the area for 20 minutes. * Repeat in 1 hour, then as needed. * This will help decrease pain, swelling, and bruising. * Caution: Avoid frostbite. BLEEDING: * If there is a scrape or cut, wash it off with soap and water. * Then apply pressure with a sterile gauze for 10 minutes to stop any bleeding. CARE ADVICE given per Head Injury (Adult) guideline. COMPLIANCE COORDINATOR documented in this encounter Plan of Treatment Upcoming Encounters Date Type Department Care Team (Late st Contact Info) Description 05/30/2025 9:10 AM IRB COMPLIANCE COORDINATOR Appointment Department of Laboratory Medicine in [address] [place] [phone] Love Sandra APRN, C.N.P., M.S.N. [address] [place] [phone] 05/30/2025 9:20 AM IRB COMPLIANCE COORDINATOR Appointment Department of Laboratory Medicine in [address] [place] [phone] Love Sandra APRN, C.N.P., M.S.N. [address] [place] [phone] 05/31/2025 3:00 PM IRB COMPLIANCE COORDINATOR Office Visit Department of Family Medicine, [facility], in [address] [place] [phone] Love Sandra APRN, C.N.P., M.S.N. [address] [place] [phone] documented as of this encounter Visit Diagnoses Not on filedocumented in this encounter Additional Health Concerns Assessment Noted Time PHQ-9 Depression Total Score: 2 01/25/20 22 8:34 AM CDT documented as of this encounter Care Teams Gas Meter Installer Relationship Specialty Start Date End Date Love Sandra APRN, C.N.P., M.S.N. [address] [place] [phone] PCP - General Family Medicine 07/28/23 documented as of this encounter
--- OUTSIDE RECORDS SUMMARY | 2025-03-01 17:52 | XMS_ITS | Clinical Summary ---
Author Organization [facility] Address [address] [place] [id number] Care Team Providers Care Winding Rack Operator Name Role Phone Pcp, No Primary Care Provider Unavailabl e Allergies No known active allergies Medications allopurinoL (ZYLOPRIM) 300 mg tablet TAKE ONE TABLET BY MOUTH EVERY DAY 0 Active insulin aspart, U-100, (NOVOLOG FLEXPEN) 100 unit/mL (3 mL) pen INJECT 32 UNITS UNDER THE SKIN BEFORE MEALS FOR DIABETES INJECT IMMEDIATELY BEFORE MEAL 0 Active insulin glargine, U-100, (LANTUS SOLOSTAR PEN; BASAGLAR KWIKPEN) 100 unit/mL (3 mL) pen INJECT 50 UNITS UNDER THE SKIN EVERY MORNING AND INJECT 55 UNITS AT BEDTIME FOR DIABETES 0 Active lisinopriL (PRINIVIL; ZESTRIL) 40 mg tablet TAKE ONE TABLET BY MOUTH EVERY DAY 0 Active metFORMIN (GLUCOPHAGE) 1,000 mg tablet TAKE ONE TABLET BY MOUTH TWO TIMES A DAY FOR DIABETES 0 Active pravastatin (PRAVACHOL) 40 mg tablet TAKE ONE TABLET BY MOUTH AT BEDTIME FOR CHOLESTEROL 0 Active timoloL maleate (TIMOPTIC) 0.5 % ophthalmic solution INSTILL 1 DROP INTO EACH EYE TWICE DAILY 1 Active BD Insulin Pen Needle UF 31 gauge x 09/02 0 Active clonazePAM (KLONOPIN) 0.5 mg tablet TAKE ONE TABLET BY MOUTH EVERY DAY NEEDED FOR ANXIETY AND PANIC -NOT MORE THAN 10 TABLETS PER MONTH 1 Active sildenafil citrate (VIAGRA) 100 mg tablet TAKE ONE TABLET BY MOUTH NEEDED 1 HOUR BEFORE ANTICIPATED SEXUAL ACTIVITY--MAXIMU M 4 DOSES FOR 30-DAY SUPPLY. FOR ERECTIONS 0 Active meclizine (ANTIVERT) 25 mg tabletIndicatio ns:Vertigo Take 1 Tablet (25 mg) by mouth 3 times daily if needed for Vertigo. 30 Tablet 3 Active Active Problems Problem Noted Date Diagnosed Date DVT prophylaxis 06/22/2013 S/P total knee arthroplasty 06/22/2013 Immunizations Immunization Administration Dates Next Due Tdap 07/28/2020 Social History Tobacco Use Types Packs/Day Years Used Date Smoking Tobacco: Never Assessed Sex and Gender Information Value Date Recorded Sex Assigned at Not on file Legal Sex Male 8:08 AM [employer] Gender Identity Not on file Sexual Orientation Not on file Last Filed Vital Signs Vital Sign Reading Time Taken Comments Blood Pressure 157/73 07/14/2022 12:14 PM CDT Pulse 56 07/14/2022 12:14 PM CDT Temperature 36.4 C (97.5 F) 07/14/2022 12:14 PM CDT Respiratory Rate 20 07/14/2022 12:14 PM CDT Oxygen Saturation 97% 07/14/2022 12:14 PM CDT Inhaled Oxygen Concentration - - Weight 149.2 kg (329 lb) 07/14/2022 12:14 PM CDT Height 185.4 cm (6' 1) 07/28/2020 2:54 PM CDT Body Mass Index 43.41 07/28/2020 2:54 PM CDT Plan of Treatment Health Maintenance Due Date Last Done Comments Depression screening for age 12+ 1962 BMI (ht and wt on same day) for age 18+ 1968 Hepatitis C screening for ag e 18-79 1968 Colonoscopy through age 75 08/08/1995 Lipids for age 45-75 08/08/1995 Pneumococcal series for age 50+ (1 of 1 - PCV) 2000 RSV vaccine for adults or (1 - Risk 50-74 years 1-dose series) 2000 Zoster (shingles) series for age 50+ (1 of 2) 2000 Medicare Wellness for age 65+ 08/08/2015 Influenza Vaccine (#1) 2024 Tetanus booster 07/28/2030 07/28/2020 Hepatitis B series for 19+ Aged Out N o longer eligible based on patient's age to complete this topic Insurance UC[employer] MEDICARE ADVANTAGE MR UC[employer] MED[employer]ARE ADVANTAGE MR Care Teams Winding Rack Operator Relationship Specialty Start Date End Date Pcp, No . PCP - General 06/07/19
--- OUTSIDE RECORDS SUMMARY | 2025-03-01 17:52 | XMS_ITS | Patient Health Record ---
Author Organization [facility], [facility] Address [address] [place] [address] Support Name Relationship Address Phone Eren Ramos Guarantor Unknown [phone] Reason For Referral No Information Plan Of Treatment No Information Insurance Providers Payer Name Payer Address Payer Phone Subscriber Number Group Number Insured Name Patient Relationship to Insured Coverage Start Date Coverage End Date [employer] [address] [place], [place] [id number] [phone] Eren Ramos Self - patient is the insured
[2025-03-01 18:18] VITALS: BP 162/80; PULSE 72; RESP 20; TEMP 36.7; O2SAT 96; BMI 33.4
--- NOTE | 2025-03-01 18:39 | CRLHL7_ITS ---
For Patients: As a result of the Century Cures Act, medical imaging exams and procedure reports are released immediately into your electronic medical record. You may view this report before your referring provider. If you have questions, please contact your health care provider. INDICATION: Head injury from Fall TECHNIQUE: CT Head without i.v. contrast. Coronal and sagittal reformats were obtained. COMPARISON: None FINDINGS: CSF space: Unremarkable for age. Brain: There is a hyperdense focus in the left parietal lobe which may represent a cortical hemorrhagic contusion measuring 1.6 cm. A left tentorial subdural hematoma is present measuring 9 mm and tracks along the posterior left superior sagittal falx. No mass-effect or midline shift is seen. Mild diffuse cortical atrophy is noted. Calvarium: The visualized paranasal sinuses are well aerated. The mastoid air cells are clear. The visualized orbits are grossly unremarkable. The patient is status post prior bilateral cataract removal. The calvarium is unremarkable in appearance with no fractures identified. IMPRESSIONS: 1. There is a hyperdense focus in the left parietal lobe which may represent a cortical hemorrhagic contusion measuring 1.6 cm. 2. A left tentorial subdural hematoma is present measuring 9 mm and tracks along the posterior left superior sagittal falx. The findings were verbally communicated with Dr. Holland at 7:08 PM. Dictated by Tyler Medina MD @ 03/01/2025 7:05:56 PM Please note that all CT scans at this facility use dose modulation, iterative reconstruction, and/or weight-based dosing when appropriate to reduce radiation dose to as low as reasonably achievable. Dictated by: Tyler Medina MD @ 03/01/2025 19:09:38 (Electronically Signed)
--- NOTE | 2025-03-01 18:56 | ED_ITS ---
HPI - General Adult General Date Seen: 03/01/25 Chief complaint: Head Injury/Pain Stated complaint: fell, hit head, passed out, can't read Time Seen by Provider: 03/01/25 18:25 History of Present Illness HPI narrative: 74 yo M With a past history of diabetes, on insulin, Presenting to the ER this evening for evaluation of head injury. Three days ago he fell backwards off of a trailer. he was at his cabin in [place] He was taking a [id number] off a trailer when he lost his balance and fell over backwards. It sounds like he hit his head on the ground ( possibly pavement? ) Gets feet caught in the trailer. He can not remember exactly what happened. Unknown duration of loss of consciousness. He does not remember other events that happened that day but he apparently got up and was with his other family members. ever since then he has had trouble with memory, trouble with focus. He has had a headache. He has been nauseous. He drove himself home from [place] yesterday. but ever since then. Since then he has been having headache, nausea, dizziness, poor memory. He does not remember events that happened after the fall that day. He is able to recognize his family members. He tried to use a smart phone today but could not recognize the words on the phone. He seems to be more confused today than yesterday. He is having headache and nausea but no vomiting. He is not anticoagulated. No coagulopathy. He denies any other painful areas. No numbness or tingling in his arms or legs. He does have some pre- existing vertigo that is now worse than normal. Related Data Allergies Allergy/AdvReac Type Severity Reaction Status Date / Time No Known Drug Allergies Allergy Verified 03/01/25 18:12 [facility] Social History Smoking Status: Never smoker How often do you have a drink containing alcohol: never AUDIT-C Alcohol total score: 0 Non-prescribed substance use: denies use service: No Exam Narrative: Exam Narrative: Primary Survey: A- patent. Speaking clearly. Phonation normal. No stridor. B- breathing easily. Lung sounds clear and equal. Oxygen saturation normal on room air C- no active bleeding. Blood pressure stable. Symmetric pulses and cap refill in 4 extremities. D- alert and oriented x3. GCS 15. He does have some word-finding difficulties and sometimes struggles to remember what happened.No focal deficits Affecting his arms or legs Constitutional: Appears well-developed and well-nourished. Alert. Conversant. Non toxic. HENT: Head: occipital scalp tenderness. Exam head trauma. Nose: Nose normal. Mouth/Throat: Oral mucosa is clear and moist. no trismus. Pharynx normal. Tonsils symmetric. No tonsillar enlargement, erythema, or exudate. Eyes: Conjunctivae normal. EOM normal. Pupils equal, round, and reactive to light. No scleral icterus. Neck: Normal range of motion. Neck supple. No tracheal deviation present. Cardiovascular: Normal rate, regular rhythm. No gallop. No friction rub. No murmur heard. Symmetric radial artery pulses Pulmonary/Chest: Effort normal. No stridor. No respiratory distress. No wheezes. No rales. No rhonchi . No tenderness. Abdominal: Soft. Bowel sounds normal. No distension. No mass. No tenderness. No rebound. No guarding. Musculoskeletal: RUE: Normal range of motion. No tenderness. No deformity LUE: Normal range of motion. No tenderness. No deformity RLE: Normal range of motion. No edema. No tenderness. No deformity LLE: Normal range of motion. No edema. No tenderness. No deformity Lymph: No cervical adenopathy. Neurological: Alert and oriented to person, place, and time. Normal strength. CN II-VII intact. No sensory deficit. GCS eye subscore is 4. GCS verbal subscore is 5. GCS motor subscore is 6. Normal coordination Skin: Skin is warm and dry. No rash noted. No pallor. Normal capillary refill. Psychiatric: Normal mood. Normal affect. Const: Vital Signs, click to edit/add: Vital Signs - 24 hr 03/01/25 18:18 03/01/25 19:35 03/01/25 19:56 Temperature 98.0 F Pulse Rate 67 72 Pulse Rate [Pulse Oximeter] 72 Respiratory Rate 20 17 28 H Blood Pressure 167/80 H 155/74 H Blood Pressure [Ri ght Upper Arm] 162/80 H Pulse Oximetry 96 94 92 Oxygen Delivery Me thod Room Air Room Air 03/01/25 20:02 Temperature Pulse Rate 72 Pulse Rate [Pulse Oximeter] Respiratory Rate 10 L Blood Pressure 152/77 H Blood Pressure [Ri ght Upper Arm] Pulse Oximetry 92 Oxygen Delivery Me thod Course Vital Signs Vital signs: Initial Vital Signs Temperature 98.0 F 03/01/25 18:18 Temperature Source Temporal Artery Scan 03/01/25 18:18 Pulse Rate 72 03/01/25 18:18 Respiratory Rate 20 03/01/25 18:18 Blood Pressure 162/80 H 03/01/25 18:18 Blood Pressure Mean 107 H 03/01/25 18:18 Pulse Oximetry 96 03/01/25 18:18 Oxygen Delivery Method Room Air 03/01/25 18:18 Vital Signs Temperature 98.0 F 03/01/25 18:18 Pulse Rate 72 03/01/25 18:18 Respiratory Rate 20 03/01/25 18:18 Blood Pressure 162/80 H 03/01/25 18:18 Pulse Oximetry 96 03/01/25 18:18 Oxygen Delivery Method Room Air 03/01/25 18:18 Temperature 98.0 F 03/01/25 18:18 Pulse Rate 72 03/01/25 20:02 Respiratory Rate 10 L 03/01/25 20:02 Blood Pressure 152/77 H 03/01/25 20:02 Pulse Oximetry 92 03/01/25 20:02 Oxygen Delivery Method Room Air 03/01/25 19:35 Medications Administered Medications: Discontinued Medications Generic Name Dose Route Start Last Admin Trade Name Belen PRN Reason Stop Dose Admin Fentanyl 25 mcg 03/01/25 19:11 03/01/25 19:25 Fentanyl 100 Mcg/2 Ml Inj IVP 03/01/25 19:12 25 mcg ONCE ONE Administration Fentanyl 50 mcg 03/01/25 20:15 03/01/25 20:20 Fentanyl 100 Mcg/2 Ml Inj IVP 03/01/25 20:16 50 mcg ONCE ONE Administration Ondansetron HCl 4 mg 03/01/25 19:11 03/01/25 19:29 Ondansetron 2 Mg/Ml Inj IVP 03/01/25 19:12 4 mg ONCE ONE Administration Medical Decision Making MDM Narrative Medical decision making narrative: 74-year-old gentleman presenting to the ER today with headache, confusion, word-finding difficulty, poor memory. He had accidental trip and fall that occurred 3 or 4 days ago and apparently struck his head on the ground when he fell out of his trailer. Head CT shows a subdural hematoma tracking along the tentorium and falx. Total with the subdural about 9 mm. No definite mass effect. There is also an associated left sided intraparenchymal cerebral contusion. GCS is 15 but he is confused and often times has significant pauses in his speech due to difficulty recalling his topic of conversation or sometimes word-finding difficulty. No other definite focal deficits on his exam. Fortunately he is not anticoagulated or on any anti-platelet agents. He denies any associated neck pain and has no tenderness of his C, T, L-spine on his clinical exam. However we did obtain a C-spine CT given mechanism and his mental status. I do not think can not be confidently examined. C-spine CT is normal. although this injury is 4-day-old, given the size of the subdural and intraparenchymal hemorrhage I do think he needs to be monitored a trauma center. It is concerning that his symptoms are actually worse today than they were yesterday and could reflect that he has had some interval increase in bleed size. At this point there is no definite signs of significant mass effect or imminent herniation. I do not think he needs to fly in helicopter to the trauma center or have immediate parole placement. Discussed my recommendation with the patient and their family. They agree with plan totransfer to a trauma center. Initially we contacted [facility]. Patient was accepted to the ER there by Dr. Lehman. Subsequently, the patient's family expressed reservations and they strongly prefer to transfer to [facility], if [facility] has available capacity. Therefore time to transfer out of the ER was substantially delayed while I called through the [facility] transfer center, waited for the trauma surgeon to call me back and accept this patient. patient was accepted to the [facility] trauma service by Dr. Rust and to the [facility] ER by Dr. Hdz. will be transferred by EMS. At the time of transfer metabolic profile was still pending. Coags are still pending. CBC showed normal white count, normal hemoglobin, normal platelet count. Lab Data Labs: Lab Results 03/01/25 Range/Units 19:30 WBC 7.69 (4.50-11.00) K/uL RBC 5.19 (4.30-5.90) m/uL Hgb 15.6 (13.5-17.5) gm/dL Hct 48.3 (37.0-53.0) % MCV 93 (80-100) fL MCH 30 (26-34) pg MCHC 32 (32-36) gm/dL RDW Coeff of Anila 13.9 (11.5-15.5) % Plt Count 256 (140-440) K/uL Neut % (Auto) 79.0 H (42.0-72.0) % Lymph % (Auto) 11.8 L (20-44) % [place]oto % (Auto) 8.3 (0.0-11.0) % Eos % (Auto) 0.4 (0.0-7.0) % Baso % (Auto) 0.4 (0.0-3.0) % Neut # (Auto) 6.10 (1.7-7.0) K/uL Lymph # (Auto) 0.90 (0.90-2.90) K/uL [place]oto # (Auto) 0.60 (0.00-0.90) K/UL Eos # (Auto) 0.03 (0.00-0.50) K/uL Baso # (Auto) 0.03 (0.00-0.30) K/uL Abs Immat Gran (auto) 0.01 (0.00-0.30) K/uL Imm/Tot Granulo (auto) 0.1 % INR Cancelled APTT Cancelled Sodium Cancelled Potassium Cancelled Chloride Cancelled Carbon Dioxide Cancelled Anion Gap Cancelled BUN Cancelled Creatinine Cancelled Estimated Creat Clear Cancelled Estimated GFR Cancelled Glucose Cancelled Calcium Cancelled Imaging Data CT scan - head: Attestation: I have reviewed the pertinent imaging results. Radiologist's impression: IMPRESSIONS: 1. There is a hyperdense focus in the left parietal lobe which may represent a cortical hemorrhagic contusion measuring 1.6 cm. 2. A left tentorial subdural hematoma is present measuring 9 mm and tracks along the posterior left superior sagittal falx. CT C spine: Attestation: I have reviewed the pertinent imaging results. Radiologist's impression: IMPRESSION: 1. No acute osseous injuries are identified. Dictated by Tyler Medina MD @ 03/01/2025 7:30:03 PM Discharge Plan Discharge Clinical Impression: Closed head injury, Acute subdural hematoma, Traumatic intraparenchymal hemorrhage Patient Disposition: Xfer Other Stand Alone Forms: [employer] Info Instructions
--- NOTE | 2025-03-01 19:12 | CRLHL7_ITS ---
For Patients: As a result of the Cures Act, medical imaging exams and procedure reports are released immediately into your electronic medical record. You may view this report before your referring provider. If you have questions, please contact your health care provider. INDICATION: Cervical spine injury from Fall, blunt trauma TECHNIQUE: CT cervical spine without i.v. contrast. Coronal and sagittal reformats were obtained. COMPARISON: None FINDINGS: Alignment: Straightening of the cervical spine is noted. Bone: No acute fractures or aggressive bone lesions are identified. Disc: Moderate to severe degenerative disc disease is present at C3-4 through C6-7 with broad-based disc protrusion causing central canal stenosis at C3-4. Scattered facet osteoarthritis is noted bilaterally. Soft tissue: Left tentorial subdural hematoma is present and discussed on separate report. The prevertebral soft tissues are unremarkable in appearance. The visualized lung apices and mediastinum are unremarkable. Bilateral calcified carotid plaques are noted. IMPRESSION: 1. No acute osseous injuries are identified. Dictated by Tyler Medina MD @ 03/01/2025 7:30:03 PM Please note that all CT scans at this facility use dose modulation, iterative reconstruction, and/or weight-based dosing when appropriate to reduce radiation dose to as low as reasonably achievable. Dictated by: Tyler Medina MD @ 03/01/2025 19:35:11 (Electronically Signed)
[2025-03-01] MEDS: ONDANSETRON 2 MG/ML inj 4 MG IVP (19:29)
[2025-03-01 19:35] VITALS: BP 167/80; PULSE 67; RESP 17; O2SAT 94
--- NOTE | 2025-03-01 19:37 | PC.NURSE ---
Family in room- informed nurse they prefer [facility] over [facility]. walked in to inform family we have acceptance at [facility], family defers [facility] at this time and would like to try for [facility].
[2025-03-01 19:41] LABS: Hematocrit* 48.3 % (37.0-53.0); Hemoglobin* 15.6 gm/dL (13.5-17.5); Immature Granulocytes Abs Auto 0.01 K/uL (0.00-0.30); Immature Granulocytes Pct Auto 0.1 %; Mean Corpuscular HGB Conc 32 gm/dL (32-36); Mean Corpuscular Hemoglobin 30 pg (26-34); Mean Corpuscular Volume 93 fL (80-100); RDW Coefficient of Variation % 13.9 % (11.5-15.5); Red Blood Count* 5.19 m/uL (4.30-5.90); White Blood Count* 7.69 K/uL (4.50-11.00)
[2025-03-01 19:42] LABS: Lymphocytes Absolute Auto 0.90 K/uL (0.90-2.90)
[2025-03-01 19:43] LABS: Slide Review Reflex No
[2025-03-01 19:56] VITALS: BP 155/74; PULSE 72; RESP 28; O2SAT 92
[2025-03-01 20:02] VITALS: BP 152/77; PULSE 72; RESP 10; O2SAT 92
--- NOTE | 2025-03-01 20:26 | PC.NURSE ---
Nurse to nurse report given to [facility]. Patient left via EMS.
== END 2025-03-01 20:25 | disposition other institution (70) ==
PROVIDERS: Emergency Provider Emergency Medicine
DX: S06.5X0A Traumatic subdural hemorrhage without loss of consciousness, initial encounter (principal); S06.360A Traumatic hemorrhage of cerebrum, unspecified, without loss of consciousness, initial encounter; W01.0XXA Fall on same level from slipping, tripping and stumbling without subsequent striking against object, initial encounter
CPT/HCPCS: 36415; 70450; 72125; 80048; 85025; 85610; 85730; 96374; 96375; 96376; 99285; 99291; J2405; J3010

== ENCOUNTER 2025-03-01 20:14 | Outpatient (CLI) | payer MEDICARE, SELFPAY | END 2025-03-01 20:15 | disposition home or self-care (01) | LOC: AMB 03-04 21:47 | PROVIDERS: Visit Provider Emergency Medicine | DX: S06.5XAA Traumatic subdural hemorrhage with loss of consciousness status unknown, initial encounter (principal) | CPT/HCPCS: A0425; A0427 ==